=== PATIENT | female | born 1950 | race Caucasian/White ===

== ENCOUNTER 2016-07-29 21:10 | Observation (INO) | payer MEDICARE, OTHER ==
--- NOTE | ~2016-07-29 | HP ---
History And Physical [address] [address] [place]. [address] NAME: GABRIELA COULTER : 50 STATUS : ADM Steve PAT#: [id number] AGE: 65 ADM/REG DATE : 07/29/16 MR#: [id number] REPORT SERV DATE: 07/30/16 DICTATED BY: CHAN ANDRES DATE: 07/30/16 REPORT STATUS : Draft TRANSCRIBED BY: MODShira DATE: 07/30/16 DATE OF ADMISSION: 07/29/2016 HISTORY OF PRESENT ILLNESS: The patient is a 65-year-old white female with a history of SVT and mitral valve prolapse. The patient has been having some vague chest tightness which is nonexertional in nature. She has had three episodes over the past week, fairly prolonged duration. She presented to the emergency room yesterday, where EKG showed no acute changes, and cardiac enzymes were negative. The patient currently is in no distress. PAST MEDICAL HISTORY: Remarkable for mitral valve prolapse and SVT. SOCIAL HISTORY: The patient does not smoke. FAMILY HISTORY: Negative for coronary artery disease. REVIEW OF SYSTEMS: The patient denies cough, wheeze, sputum production, vomiting, diarrhea, or dysuria. PHYSICAL EXAMINATION: VITAL SIGNS: Blood pressure is 127/64, heart rate 60 and regular, respirations 16 and nonlabored. HEENT: Unremarkable. NECK: Shows no jugular venous distention with good carotid upstroke. CHEST: Clear. CARDIOVASCULAR: The PMI is not displaced. S1 is normal. S2 is narrowly split. No gallop, murmur, rub, or click is present. ABDOMEN: Soft, nontender with normal bowel sounds. EXTREMITIES: Show no cyanosis, clubbing, or edema. SKIN: Warm and dry with no pallor or icterus. NEURO/PSYCH: The patient is oriented x3 with appropriate affect. IMPRESSION: 1. New onset angina versus non-cardiac chest pain. 2. History of mitral valve prolapse. 3. History of paroxysmal supraventricular tachycardia. PLAN: 1. Echocardiogram. 2. Nuclear perfusion scan. BLANCA/CORAL Chan Andres M.D., [facility] History And Physical [address] [address] NAME: GABRIELA COULTER : 50 STATUS : ADM Steve PAT#: [id number] AGE: 65 ADM/REG DATE : 07/29/16 MR#: [id number] REPORT SERV DATE: 07/30/16 DICTATED BY: CHAN ANDRES DATE: 07/30/16 REPORT STATUS : Draft TRANSCRIBED BY: CORAL DATE: 07/30/16 / [id number] CC: Chan Andres M.D., [employer]
[2016-07-29 19:35] LABS: BASOPHILS 0.7 %; BASOPHILS ABSOLUTE 0.03 10/3/uL (0.0-0.16); EOSINOPHILS 2.9 %; EOSINOPHILS ABSOLUTE 0.12 10/3/uL (0.0-0.53); ER CBC TAT 0 Hrs 07 Mins; HEMATOCRIT 40.3 % (36.0-48.0); HEMOGLOBIN 13.6 g/dL (12.0-16.0); IMMATURE GRANULOCYTES 0.2 %; IMMATURE GRANULOCYTES ABSOLUTE 0.01 10/3/uL (0.0-0.11); LYMPHOCYTES 35.8 %; LYMPHOCYTES ABSOLUTE 1.49 10/3/uL (0.67-4.30); MEAN CORPUS HGB CONC 33.7 g/dL (32.0-36.0); MEAN CORPUSCULAR HEMOGLOB 31.3 pg (26.0-34.0); MEAN CORPUSCULAR VOLUME 92.6 fL (80-100); MONOCYTES 7.5 %; MONOCYTES ABSOLUTE 0.31 10/3/uL (0.21-1.20); NEUTROPHILS 52.9 %; PLATELET COUNT 236 10/3/uL (150-400); RBC DISTRIBUTION WIDTH 12.5 % (12.0-16.0); RED CELL COUNT 4.35 10/6/uL (4.0-5.6); WHITE BLOOD CELLS 4.2 10/3/uL (4.5-10.5)
[2016-07-29 19:43] LABS: MANUAL DIFF NO %; PARTIAL THROMBO TIME 26.2 SEC (22.5-37.2)
[2016-07-29 19:49] LABS: BUN (BLOOD UREA NITROGEN) 21 MG/DL (6-23); CALCIUM, SERUM 9.2 MG/DL (8.5-10.4); CHEST PAIN PROFILE TAT 0 Hrs 21 Mins; CHLORIDE, SERUM 107 MMOL/L (96-112); CO2 (CARBON DIOXIDE) 29 MMOL/L (24-34); CREATININE 0.66 MG/DL (0.55-1.02); GFR AFRICAN AMERICAN 107 ML/MIN (>=60); GFR NON AFRICAN AMERICAN 93 ML/MIN (>=60); GLUCOSE, SERUM 87 MG/DL (60-99); POTASSIUM, SERUM 4.4 MMOL/L (3.5-5.3); SODIUM, SERUM 140 MMOL/L (135-148); TROPONIN I <0.02 NG/ML (<0.05)
[~2016-07-29 21:10] MED LIST: GLUCOSAMINEPO PO; METOPROLOL PO
[2016-07-30 02:25] LABS: CHOL/HDL RATIO(NOT ORDER) 2.6 (0-5); CHOLESTEROL 174 MG/DL (< 200); HDL CHOLESTEROL 66 MG/DL (> 49); LDL CHOLESTEROL 97 MG/DL (< 130); NON-HDL CHOLESTEROL 108 MG/DL (< 160); TRIGLYCERIDE 59 MG/DL (< 150); TROPONIN I <0.02 NG/ML (<0.05)
[2016-07-30 11:54] LABS: CPK 58 U/L (0-200)
[2016-07-30 11:58] LABS: CK-MB < 0.5 NG/ML
[2016-07-31 05:13] LABS: BASOPHILS 0.5 %; BASOPHILS ABSOLUTE 0.02 10/3/uL (0.0-0.16); EOSINOPHILS 3.7 %; EOSINOPHILS ABSOLUTE 0.14 10/3/uL (0.0-0.53); HEMATOCRIT 38.9 % (36.0-48.0); HEMOGLOBIN 13.3 g/dL (12.0-16.0); IMMATURE GRANULOCYTES 0.3 %; IMMATURE GRANULOCYTES ABSOLUTE 0.01 10/3/uL (0.0-0.11); LYMPHOCYTES 42.5 %; LYMPHOCYTES ABSOLUTE 1.59 10/3/uL (0.67-4.30); MANUAL DIFF NO %; MEAN CORPUS HGB CONC 34.2 g/dL (32.0-36.0); MEAN CORPUSCULAR HEMOGLOB 31.6 pg (26.0-34.0); MEAN CORPUSCULAR VOLUME 92.4 fL (80-100); MEAN PLATELET VOLUME 10.1 fL (9.2-13.0); MONOCYTES 10.4 %; MONOCYTES ABSOLUTE 0.39 10/3/uL (0.21-1.20); NEUTROPHILS 42.6 %; NEUTROPHILS ABSOLUTE 1.59 10/3/uL (2.02-8.40); PLATELET COUNT 224 10/3/uL (150-400); RBC DISTRIBUTION WIDTH 12.4 % (12.0-16.0); RED CELL COUNT 4.21 10/6/uL (4.0-5.6); WHITE BLOOD CELLS 3.7 10/3/uL (4.5-10.5)
[2016-07-31] MEDS ORDERED: ASA5GR PO (19:18)
== END 2016-07-31 20:30 | disposition home or self-care (01) ==
LOC: ER 21:10 → 5NO 22:14
PROVIDERS: Emergency Medicine; Internal Medicine Interventional Cardiology
DX: R07.89 Other chest pain (principal); I47.1 Supraventricular tachycardia; Z79.899 Other long term (current) drug therapy
CPT/HCPCS: 71020; 78452; 80048; 80061; 82550; 82553; 83735; 84460; 84484; 85025; 85610; 85730; 93005; 93017; 93306; 99285; A9270-GY; A9502; G0378